=== PATIENT | female | born 1985 | race Caucasian/White ===

== ENCOUNTER 2016-06-21 11:08 | Emergency (ER) | payer MEDICARE, MEDICAID ==
[2016-06-21 11:20] VITALS: BP 119/72
[2016-06-21] MEDS ORDERED: LORazepam 2 MG/ML MDV IM ONE (11:35)
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
[2016-06-21] MEDS ORDERED: Azithromycin 250 MG Tab PO ONE (12:43)
[2016-06-21] MEDS ORDERED: LORazepam 0.5 MG Tab PO ONE (14:00)
[2016-06-22] MEDS ORDERED: Azithromycin 250 MG Tab PO ONE (12:37)
== END 2016-06-21 14:00 | disposition home or self-care (01) ==
LOC: JD.ED 11:08
DX: F41.9 Anxiety disorder, unspecified (principal); E05.90 Thyrotoxicosis, unspecified without thyrotoxic crisis or storm; F17.210 Nicotine dependence, cigarettes, uncomplicated; Z88.1 Allergy status to other antibiotic agents; Z88.8 Allergy status to other drugs, medicaments and biological substances; Z87.440 Personal history of urinary (tract) infections; Z79.899 Other long term (current) drug therapy
CPT/HCPCS: 96372; 99283; A9270; J2060; 99284

== ENCOUNTER 2016-07-20 10:05 | Emergency (ER) | payer MEDICARE, MEDICAID ==
[2016-07-20] MEDS ORDERED: LORazepam 2 MG/ML MDV IVPUSH ONE ×3 (10:22→13:31)
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
[2016-07-20] MEDS ORDERED: Dextrose 5%-0.9% NaCl 1,000 ML IV SCH (10:30)
[2016-07-20] MEDS ORDERED: Sodium Chloride 0.9% 1,000 ML IV SCH (13:00)
[2016-07-20] MEDS ORDERED: HYDROmorphone 0.5 MG/0.5 ML Syringe IVPUSH ONE (13:31)
[2016-07-20] MEDS ORDERED: levETIRAcetam 500 MG in Sodium Chloride 0.9% 100 ML IV ONE (13:33)
[2016-07-20 16:05] VITALS: BP 95/63
== END 2016-07-20 14:50 | disposition home or self-care (01) ==
LOC: JD.ED 10:05
DX: F41.9 Anxiety disorder, unspecified (principal); R56.9 Unspecified convulsions; E05.90 Thyrotoxicosis, unspecified without thyrotoxic crisis or storm; F17.210 Nicotine dependence, cigarettes, uncomplicated; Z88.0 Allergy status to penicillin; Z88.1 Allergy status to other antibiotic agents; Z88.8 Allergy status to other drugs, medicaments and biological substances; Z79.899 Other long term (current) drug therapy; Z87.440 Personal history of urinary (tract) infections
CPT/HCPCS: 36415; 80053; 80306; 82009; 83605; 83735; 83930; 85025; 96361; 96365; 96375; 96376; 99285; G0480; J1170; J2060; J7040; J7042; 99284; J1953; J7030

== ENCOUNTER 2016-08-03 11:51 | Emergency (ER) | payer MEDICARE, MEDICAID ==
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
[2016-08-03 13:47] VITALS: BP 117/78
== END 2016-08-03 13:37 | disposition home or self-care (01) ==
LOC: JD.ED 11:51
DX: K62.3 Rectal prolapse (principal); K62.5 Hemorrhage of anus and rectum; F17.210 Nicotine dependence, cigarettes, uncomplicated; F41.9 Anxiety disorder, unspecified; Z98.890 Other specified postprocedural states; E05.90 Thyrotoxicosis, unspecified without thyrotoxic crisis or storm; Z88.1 Allergy status to other antibiotic agents; Z88.8 Allergy status to other drugs, medicaments and biological substances; Z79.899 Other long term (current) drug therapy
CPT/HCPCS: 99283

== ENCOUNTER 2016-08-05 10:35 | Emergency (ER) | payer MEDICARE, MEDICAID ==
[2016-08-05 11:05] VITALS: BP 113/87
[2016-08-05] MEDS ORDERED: Sodium Chloride 0.9% 10 ML Syringe FLUSH PRN (11:21)
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
--- NOTE | 2016-08-05 12:41 | CT ---
Head CT Technique: Multiple axial sections through the brain were obtained. Intravenous contrast was not utilized. Comparison: Previous head CT exam of 03/06/16. Findings: Ventricles along the basal cisterns and sulci over the convexities are mildly prominent. Widening of the subarachnoid space posterior to the left cerebellar hemisphere is seen which is stable and a normal variant. No other abnormal parenchymal densities are seen. No evidence of intracranial hemorrhage. No midline shift or mass effect is seen. Bone window settings were reviewed which shows the visualized sinuses do appear clear. No calvarial abnormality is seen. Impression: 1. Mild generalized atrophy which is stable from prior head CT exam. 2. No acute intracranial abnormality is identified. No skull fracture is seen. Diagnostic code #2
--- NOTE | 2016-08-05 12:43 | CT ---
CT facial bones Technique: Multiple axial sections through the facial bones were obtained. Intravenous contrast was not utilized. Reconstructed coronal and sagittal images were also obtained. Findings: Paranasal sinuses are clear. No air-fluid levels are seen. Right and left globes are symmetric. No retrobulbar abnormality is seen. No facial bone fracture is seen. Mastoid sinuses and middle ear cavities are clear. Impression: 1. Nothing acute is identified on CT study of the facial bones. Diagnostic code #1
[2016-08-05] MEDS ORDERED: LORazepam 2 MG/ML MDV IVPUSH ONE (13:45)
[2016-08-05] MEDS ORDERED: Sodium Chloride 0.9% 1,000 ML IV ONE (14:00)
[2016-08-05] MEDS ORDERED: Ibuprofen 600 MG Tab PO ONE (17:01)
[2016-08-05] MEDS ORDERED: Sodium Chloride 0.9% 1,000 ML ONE (17:35)
[2016-08-05] MEDS ORDERED: Sodium Chloride 0.9% 1,000 ML IV SCH (17:45)
== END 2016-08-05 17:47 ==
LOC: JD.ED 10:35
DX: T74.11XA Adult physical abuse, confirmed, initial encounter (principal); S01.01XA Laceration without foreign body of scalp, initial encounter; R25.1 Tremor, unspecified; R61 Generalized hyperhidrosis; F32.9 Major depressive disorder, single episode, unspecified; F41.9 Anxiety disorder, unspecified; F10.20 Alcohol dependence, uncomplicated; F17.210 Nicotine dependence, cigarettes, uncomplicated; Y90.1 Blood alcohol level of 20-39 mg/100 ml; Z88.1 Allergy status to other antibiotic agents; Z88.8 Allergy status to other drugs, medicaments and biological substances; Z98.890 Other specified postprocedural states; Z78.9 Other specified health status; Y07.03 Male partner, perpetrator of maltreatment and neglect
CPT/HCPCS: 36415; 70450; 70486; 80053; 80306; 81001; 81025; 84443; 85025; 96361; 96374; 99285; A9270; G0480; J2060; J7040; J7050

== ENCOUNTER 2017-06-05 16:24 | Emergency (ER) | payer MEDICARE, MEDICAID ==
[2017-06-05 16:40] VITALS: BP 95/68
[2017-06-05] MEDS ORDERED: LORazepam 2 MG/ML SDV IVPUSH ONE (17:02)
[2017-06-05] MEDS ORDERED: Sodium Chloride 0.9% 1,000 ML IV ONE (17:03)
[2017-06-05] MEDS ORDERED: Sodium Chloride 0.9% 10 ML Syringe FLUSH PRN (17:03)
[2017-06-05] MEDS ORDERED: Ondansetron 4 MG/2 ML SDV IVPUSH ONE (17:17)
[2017-06-05] MEDS ORDERED: Ketorolac 30 MG/ML SDV IVPUSH ONE (17:17)
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
== END 2017-06-05 17:40 | disposition left against medical advice (07) ==
LOC: JD.ED 16:24
DX: R26.9 Unspecified abnormalities of gait and mobility (principal); F17.210 Nicotine dependence, cigarettes, uncomplicated; Z88.1 Allergy status to other antibiotic agents; Z79.899 Other long term (current) drug therapy
CPT/HCPCS: 36415; 80053; 83735; 84443; 84703; 85025; 96374; 99284; G0480; J2060; J7050

== ENCOUNTER 2017-08-25 11:20 | Emergency (ER) | payer MEDICARE, MEDICAID ==
[2017-08-25] MEDS ORDERED: Ketorolac 15 MG/ML SDV IVPUSH ONE (11:49)
[2017-08-25] MEDS ORDERED: Sodium Chloride 0.9% 1,000 ML IV ONE ×2 (11:49→14:51)
[2017-08-25] MEDS ORDERED: Sodium Chloride 0.9% 10 ML Syringe FLUSH PRN (11:50)
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
--- NOTE | 2017-08-25 12:45 | CT ---
Head CT Technique: Multiple axial sections through the brain were obtained. Intravenous contrast was not utilized. Comparison: Prior head CT exam of 08/05/16. Findings: Ventricles along with basal cisterns and sulci over the convexities are mildly prominent. Focal widening of the subarachnoid space posterior to the left cerebellar hemisphere is seen which is stable from previous exam. No abnormal parenchymal densities are seen. No evidence of intracranial hemorrhage. No midline shift or mass effect is seen. Bone window settings were reviewed which show mild mucosal thickening within the posterior right ethmoid sinus. Other visualized sinuses are clear. Impression: 1. Mucosal thickening within the posterior right ethmoid sinus. 2. Mild generalized atrophy and other incidental finding. 3. Nothing acute is seen. Diagnostic code #2
[2017-08-25] MEDS ORDERED: Famotidine 20 MG/2 ML SDV IVPUSH ONE (13:00)
[2017-08-25] MEDS ORDERED: Folic Acid 1 MG Tab PO ONE (13:00)
[2017-08-25] MEDS ORDERED: LORazepam 2 MG/ML SDV IVPUSH ONE (14:00)
[2017-08-25] MEDS ORDERED: Magnesium Oxide 400 MG Tab PO ONE (14:51)
[2017-08-25 16:48] VITALS: BP 115/94
== END 2017-08-25 17:25 | disposition home or self-care (01) ==
LOC: JD.ED 11:20
DX: F10.129 Alcohol abuse with intoxication, unspecified (principal); F17.210 Nicotine dependence, cigarettes, uncomplicated; Y90.1 Blood alcohol level of 20-39 mg/100 ml; Z88.1 Allergy status to other antibiotic agents; Z88.8 Allergy status to other drugs, medicaments and biological substances; Z79.899 Other long term (current) drug therapy
CPT/HCPCS: 36415; 70450; 80053; 80306; 81001; 83735; 85007; 85027; 85610; 85730; 96361; 96374; 96375; 99284; A9270; G0480; J1885; J2060; J7040; J7050

== ENCOUNTER 2017-11-27 11:17 | Emergency (ER) | payer MEDICARE, MEDICAID ==
[2017-11-27] MEDS ORDERED: LORazepam 2 MG/ML SDV ONE (11:27)
[2017-11-27] MEDS ORDERED: Midazolam 1 MG/ML 5 ML SDV ONE (11:30)
[2017-11-27] MEDS ORDERED: Rocuronium 50 MG/5 ML Vial ONE (11:30)
[2017-11-27] MEDS ORDERED: Midazolam 5 MG/ML 5 ML MDV ONE (11:31)
[2017-11-27] MEDS ORDERED: Sodium Chloride 0.9% 50 ML ONE (11:32)
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
[2017-11-27] MEDS ORDERED: diazePAM 5 MG/ML MDV IVPUSH ONE (12:07)
[2017-11-27] MEDS ORDERED: levETIRAcetam 1,500 MG in Sodium Chloride 0.9% 100 ML IV STA (12:09)
--- NOTE | 2017-11-27 12:15 | CT ---
Head CT Technique: Multiple axial sections through the brain were obtained. Intravenous contrast was not utilized. Comparison: Previous head CT study of 08/25/17. Findings: Large subdural hemorrhage is identified within the right frontal, temporal and parietal regions. Thickness of this hemorrhage is approximately 2.0 cm. Subdural blood extends along the inferior right cerebellar falx as well as extends into the inferior right temporal region. There is midline shift being seen by about 5 mm. Effacement of the right lateral ventricle is noted. Effacement of the adjacent sulci are noted in the area of the subdural hemorrhage. No additional hemorrhage is seen. Bone window settings were reviewed which shows no acute skull fracture. Impression: 1. Large right-sided subdural hematoma as noted above. Significant effacement of the adjacent sulci as well as effacement of the right lateral ventricle and midline shift of about 5 mm. Neural surgical referral is recommended. 2. No acute skull fracture or acute parenchymal hemorrhage is seen. Diagnostic code #5
--- NOTE | 2017-11-27 12:21 | CR ---
Chest: Portable view of the chest was obtained. Comparison: Prior chest x-ray of 03/09/16. Slight increased density within the left upper chest is most likely due to atelectasis or slight pulmonary contusion. Lungs otherwise are clear. Heart size is normal. Aortic knob is not well seen. Bony structures are grossly intact. Mild scoliosis is seen. Tip of endotracheal tube lies at the level of the clavicle pointing towards the right mainstem bronchus. Tip of nasogastric tube courses off the inferior edge of the film and lies within the stomach. Impression: 1. Slight parenchymal density within left upper chest most likely due to atelectasis or pulmonary contusion. 2. Tip of endotracheal tube lies at the [place] pointing to the right mainstem bronchus. 3. Tip of nasogastric tube courses off the inferior edge of the film into the stomach. 4. Other findings as noted above. Diagnostic code #3
[2017-11-27 12:22] LABS: ACETAMINOPHEN 0 ug/mL (10-30)
--- NOTE | 2017-11-27 12:26 | CR ---
Chest: Portable supine view of the chest was obtained. Comparison: Previous chest x-ray performed earlier on same day (11:56 AM) Findings: Aortic arch is better seen on current study. Thick linear area of atelectasis is noted within the left midlung which is an interval change. Better aeration of the left upper chest is seen compatible with diminished atelectasis from prior study. Heart size and mediastinum are normal. Bony structures are grossly intact. Mild scoliosis is present within the spine. Tip of endotracheal tube has been withdrawn. Tip now lies approximately 1.8 cm above the [place]. Nasogastric tube is seen with tip lying within the stomach. Impression: 1. Thick linear area of atelectasis within left midlung. Improved aeration of the left upper lung from prior study compatible with improved atelectasis. 2. Tip of endotracheal tube has been withdrawn and now lies approximately 1.8 cm above the k[place]. 3. Satisfactory position of nasogastric tube. Diagnostic code #2
[2017-11-27] MEDS ORDERED: Sodium Chloride 0.9% 1,000 ML IV SCH (12:30)
--- NOTE | 2017-11-27 12:51 | CT ---
CT cervical spine Technique: Multiple axial sections were obtained from above C1 inferiorly to the bottom of T2. Reconstructed sagittal and coronal images were reviewed. Comparison: No prior cervical spine imaging. Findings: Mild disc space narrowing is noted at C2-C3, C3-C4, C4-C5 and C5-C6. Posterior disc space narrowing is noted at C6-C7. Anterior osteophytes are noted at C2-C3 through C6-C7. Posterior osteophytes are seen most prominent at C6-C7. Vertebral body heights are maintained. Mild right-sided neural foraminal stenosis is seen at C6-C7. Other neural foramina are patent. No fracture is seen. No abnormal subluxation is seen. Mild degenerative apophyseal change is scattered within the cervical spine. Partially visualized endotracheal tube and nasogastric tube is seen. Impression: 1. Mild degenerative change. 2. Nothing acute is seen on CT study of the cervical spine. Diagnostic code #2
[2017-11-27 13:43] VITALS: BP 150/115
== END 2017-11-27 13:00 ==
LOC: JD.ED 11:17
DX: I62.00 Nontraumatic subdural hemorrhage, unspecified (principal); F10.129 Alcohol abuse with intoxication, unspecified; Y90.8 Blood alcohol level of 240 mg/100 ml or more; E03.9 Hypothyroidism, unspecified; F12.10 Cannabis abuse, uncomplicated; E87.6 Hypokalemia; R56.9 Unspecified convulsions; F41.9 Anxiety disorder, unspecified; Z79.899 Other long term (current) drug therapy; Z88.1 Allergy status to other antibiotic agents
CPT/HCPCS: 31500; 36415; 36600; 51702; 70450; 71045; 72125; 80053; 80306; 81001; 81025; 82803; 83605; 83735; 84443; 85007; 85027; 85610; 85730; 93005; 96365; 96368; 96375; 96376; 99291; 99292; G0480; J1953; J2060; J2250; J3360; J7030; J7040; J7050; 93010

== ENCOUNTER 2018-07-22 22:17 | Emergency (ER) | payer MEDICARE, MEDICAID ==
[2018-07-22 22:30] VITALS: BP 102/90
[2018-07-22] MEDS ORDERED: Lactated Ringers 1,000 ML IV ONE (23:52)
[2018-07-22] MEDS ORDERED: Ondansetron 4 MG/2 ML SDV IVPUSH ONE (23:53)
[2018-07-22] MEDS ORDERED: Ketorolac 30 MG/ML SDV IVPUSH STA (23:53)
--- NOTE | 2018-07-23 00:21 | EDM.PDOC ---
ED HPI GENERAL MEDICAL PROBLEM - General Chief Complaint: Headache Stated Complaint: RECENT BRAIN SURGERY Time Seen by Provider: 07/22/18 23:46 Source of Information: Reports: Patient, RN Notes Reviewed, Significant Other ( Boyfriend) History Limitations: Reports: Intoxication (Much of the history provided by the patient's boyfriend. The patient was more argumentative.) - History of Present Illness INITIAL COMMENTS - FREE TEXT/NARRATIVE: The patient's boyfriend states that the patient underwent cerebral aneurysm clipping surgery in November 2017 at [facility]. The patient reports that she has had a slight headache for the past 2 days, she became significantly worse this evening, while eating dinner. Her headache is felt behind both of her eyes, ears, and the back of her head. No associated nausea or vomiting. The patient reports both photophobia and phonophobia, however, when I entered the room, she was watching and listening to the television. She reports blurry vision, but did not indicate that she saw flashing lights or wavy lines. She did not report any neurologic symptoms, such as tingling, numbness, or weakness. Clinically, the patient appears to be intoxicated, and she smells strongly of alcohol. The patient's boyfriend states that the patient drinks 5 airplane bottles of vodka or liqueur every day. Her last period of sobriety was for approximately 2 weeks, in November 2017. The patient states that she has been to inpatient treatment 4 times, most recently for 2 days in 2018. She denies ever having gone to outpatient rehabilitation. The patient's PCP is Priscila Valencia NP. Her Psychiatrist or Psychologist is [facility]. Treatments IT HELP DESK ASSOCIATE: Reports: Other (see below) Other Treatments IT HELP DESK ASSOCIATE: says tylenol and motrin do not work Head Pain Score (Numeric/FACES): 10 - Related Data Allergies Allergy/AdvReac Type Severity Reaction Status Date / Time amoxicillin Allergy Cannot Verified 06/05/17 16:41 Remember baclofen Allergy Cannot Verified 06/05/17 16:41 Remember doxycycline Allergy Cannot Verified 06/05/17 16:41 Remember levetiracetam [From Keppra] Allergy Cannot Verified 06/05/17 16:41 Remember Home Meds: Home Meds Escitalopram [Lexapro] 20 mg PO DAILY 08/25/17 [History] ClonazePAM [KlonoPIN] 0.5 mg PO TID 07/22/18 [History] Gabapentin [Neurontin] 400 mg PO TID 07/22/18 [History] Past Medical History Gastrointestinal History: Reports: Hemorrhoids Musculoskeletal History: Reports: Back Pain, Chronic, Fracture (Nasal) Neurological History: Reports: Cerebral Aneurysms (s/p clipping Nov 2017), Other (See Below) (Subarachnoid hemorrhage) Psychiatric History: Reports: ADHD, Addiction (alcohol), Bipolar, Depression, Psych Hospitalization(s), PTSD, Other (See Below) (Pseudoseizures) - Infectious Disease History Infectious Disease History: Reports: Hepatitis C - Past Surgical History Head Surgeries/Procedures: Reports: Craniotomy (Right, for aneurism clipping, Nov 2017) HEENT Surgical History: Reports: Oral Surgery (wisdom teeth extraction) Musculoskeletal Surgical History: Reports: Other (See Below) (Right arm repair) Social & Family History - Family History Family Medical History: Unobtainable Musculoskeletal: Reports: Arthritis Oncologic: Reports: Breast, Colon - Tobacco Use Smoking Status *Q: Current Every Day Smoker Years of Tobacco use: 17 Packs/Tins Daily: 0.5 Packs/Tins Daily Comment: Down from 1 ppd - Caffeine Use Caffeine Use: Reports: None - Alcohol Use Alcohol Use History: Yes Days Per Week of Alcohol Use: 7 Number of Drinks Per Day: 5 Total Drinks Per Week: 35 Alcohol Use Frequency: Daily - Recreational Drug Use Recreational Drug Use: Yes Drug Use in Last 12 Months: Yes Recreational Drug Type: Reports: Cocaine (last snorted around 2006), Marijuana/ Hashish (smokes on occasion), Methamphetamine (last injected 2012) - Living Situation & Occupation Living situation: Reports: Single, with Significant Other (Boyfriend) Occupation: Unemployed ED ROS GENERAL - Review of Systems Review Of Systems: ROS reveals no pertinent complaints other than HPI. - Physical Exam Exam: See Below Exam Limited By: No Limitations General Appearance: Alert, No Apparent Distress, Thin, Other (Strong smell of alcohol) Eye Exam: Bilateral Eye: EOMI, Normal Inspection Ears: Normal External Exam, Hearing Grossly Normal Nose: Normal Inspection Throat/Mouth: Normal Inspection, Normal Lips, Normal Voice, No Airway Compromise Head Exam: Atraumatic, Normocephalic Neck: Normal Inspection, Full Range of Motion Respiratory/Chest: No Respiratory Distress, Lungs Clear, Normal Breath Sounds, No Accessory Muscle Use Cardiovascular: Normal Peripheral Pulses, Regular Rate, Rhythm, No Edema, No Gallop, No JVD, No Murmur, No Rub GI/Abdominal: Normal Bowel Sounds, Soft, Non-Tender, No Organomegaly, No Distention, No Abnormal Bruit, No Mass (Female) Exam: Deferred Rectal (Female) Exam: Deferred Neuro Exam (Abbreviated): Alert, Oriented, CN II-XII Intact, No Motor/Sensory Deficits Back Exam: Normal Inspection, Full Range of Motion, NT Extremities: Normal Inspection, Normal Range of Motion, No Pedal Edema, Normal Capillary Refill Psychiatric: Other (Hostile) Skin Exam: Warm, Dry, Intact, Normal Color, No Rash Course - Vital Signs Last Recorded V/S: Last Vital Signs Temp 36.7 C 07/22/18 22:29 Pulse 95 07/22/18 22:29 Resp 20 07/22/18 22:29 BP 102/90 07/22/18 22:29 Pulse Ox 97 07/22/18 22:29 - Orders/Labs/Meds Labs: Laboratory Tests 07/22/18 07/22/18 07/22/18 Range/Units 22:40 22:40 23:10 WBC 6.09 (3.98-10.04) K/mm3 RBC 4.64 (3.98-5.22) M/mm3 Hgb 14.2 D (11.2-15.7) gm/L Hct 41.9 (34.1-44.9) % MCV 90.3 D (79.4-94.8) fl MCH 30.6 (25.6-32.2) pg MCHC 33.9 (32.2-35.5) g/dl RDW Std Deviation 45.8 (36.4-46.3) fL Plt Count 221 (182-369) K/mm3 MPV 10.6 (9.4-12.3) fl Neutrophils % (Manual) 51 (40-60) % Band Neutrophils % 0 (0-10) % Lymphocytes % (Manual) 44 H (20-40) % Atypical Lymphs % 0 % Monocytes % (Manual) 4 (2-10) % Eosinophils % (Manual) 0 L (0.7-5.8) % Basophils % (Manual) 1 (0.1-1.2) Platelet Estimate Adequate Plt Morphology Comment Normal RBC Morph Comment Normal Sodium (136-145) mEq/L Potassium (3.5-5.1) mEq/L Chloride (98-107) mEq/L Carbon Dioxide (21-32) mEq/L Anion Gap (5-15) BUN (7-18) mg/dL Creatinine (0.55-1.02) mg/dL Est Cr Clr Drug Dosing mL/min Estimated GFR (MDRD) (>60) mL/min BUN/Creatinine Ratio (14-18) Glucose (74-106) mg/dL Calcium (8.5-10.1) mg/dL Total Bilirubin (0.2-1.0) mg/dL AST (15-37) U/L ALT (14-59) U/L Alkaline Phosphatase (46-116) U/L Total Protein (6.4-8.2) g/dl Albumin (3.4-5.0) g/dl Globulin gm/dL Albumin/Globulin Ratio (1-2) Urine Color Yellow (Yellow) Urine Appearance Clear (Clear) Urine pH 7.0 (5.0-8.0) Ur Specific [place] 1.010 (1.005-1.030) Urine Protein Negative (Negative) Urine Glucose (UA) Negative (Negative) Urine Ketones Negative (Negative) Urine Occult Blood Negative (Negative) Urine Nitrite Negative (Negative) Urine Bilirubin Negative (Negative) Urine Urobilinogen 0.2 (0.2-1.0) Ur Leukocyte Esterase Negative (Negative) Urine RBC 0-5 (0-5) /hpf Urine WBC Not seen (0-5) /hpf Ur Epithelial Cells 0-5 (0-5) /hpf Urine Bacteria Not seen (FEW) /hpf Urine Mucus Not seen (FEW) /hpf Urine Opiates Screen Negative (WCLRRY=560) Ur Buprenorphine Scrn Negative (CUTOFF=10) Ur Oxycodone Screen Negative (JPU1HO=718) Urine Methadone Screen Negative (IDORUH=298) Ur Propoxyphene Screen Negative (ZPSROB=875) Ur Barbiturates Screen Negative (TNLJYP=414) Ur Tricyclics Screen Negative (FLRXQU=325) Ur Phencyclidine Scrn Negative (CUTOFF=25) Ur Amphetamine Screen Negative (OZBEIS=823) U Methamphetamines Scrn Negative (PBDLRA=827) U Benzodiazepines Scrn Negative (TBSVNO=285) U Cocaine Metab Screen Negative (GTEQEO=665) U Marijuana (THC) Screen Negative (CUTOFF=50) Ethyl Alcohol (0.00) gm% 07/22/18 Range/Units 23:10 WBC (3.98-10.04) K/mm3 RBC (3.98-5.22) M/mm3 Hgb (11.2-15.7) gm/L Hct (34.1-44.9) % MCV (79.4-94.8) fl MCH (25.6-32.2) pg MCHC (32.2-35.5) g/dl RDW Std Deviation (36.4-46.3) fL Plt Count (182-369) K/mm3 MPV (9.4-12.3) fl Neutrophils % (Manual) (40-60) % Band Neutrophils % (0-10) % Lymphocytes % (Manual) (20-40) % Atypical Lymphs % % Monocytes % (Manual) (2-10) % Eosinophils % (Manual) (0.7-5.8) % Basophils % (Manual) (0.1-1.2) Platelet Estimate Plt Morphology Comment RBC Morph Comment Sodium 145 (136-145) mEq/L Potassium 3.9 (3.5-5.1) mEq/L Chloride 106 (98-107) mEq/L Carbon Dioxide 28 (21-32) mEq/L Anion Gap 14.9 (5-15) BUN 7 (7-18) mg/dL Creatinine 0.7 (0.55-1.02) mg/dL Est Cr Clr Drug Dosing 101.90 mL/min Estimated GFR (MDRD) > 60 (>60) mL/min BUN/Creatinine Ratio 10.0 L (14-18) Glucose 92 (74-106) mg/dL Calcium 9.4 (8.5-10.1) mg/dL Total Bilirubin 0.2 (0.2-1.0) mg/dL AST 132 H (15-37) U/L ALT 124 H (14-59) U/L Alkaline Phosphatase 58 (46-116) U/L Total Protein 7.8 (6.4-8.2) g/dl Albumin 4.5 (3.4-5.0) g/dl Globulin 3.3 gm/dL Albumin/Globulin Ratio 1.4 (1-2) Urine Color (Yellow) Urine Appearance (Clear) Urine pH (5.0-8.0) Ur Specific [place] (1.005-1.030) Urine Protein (Negative) Urine Glucose (UA) (Negative) Urine Ketones (Negative) Urine Occult Blood (Negative) Urine Nitrite (Negative) Urine Bilirubin (Negative) Urine Urobilinogen (0.2-1.0) Ur Leukocyte Esterase (Negative) Urine RBC (0-5) /hpf Urine WBC (0-5) /hpf Ur Epithelial Cells (0-5) /hpf Urine Bacteria (FEW) /hpf Urine Mucus (FEW) /hpf Urine Opiates Screen (HGKOVW=360) Ur Buprenorphine Scrn (CUTOFF=10) Ur Oxycodone Screen (IYO0XJ=477) Urine Methadone Screen (SIDLHO=469) Ur Propoxyphene Screen (HLJSAB=256) Ur Barbiturates Screen (OHMAUW=691) Ur Tricyclics Screen (EFKZRV=205) Ur Phencyclidine Scrn (CUTOFF=25) Ur Amphetamine Screen (ZRFHAV=692) U Methamphetamines Scrn (FJQUOM=133) U Benzodiazepines Scrn (PYVMLX=101) U Cocaine Metab Screen (GUSWLS=077) U Marijuana (THC) Screen (CUTOFF=50) Ethyl Alcohol 0.33 (0.00) gm% Meds: Medications Discontinued Medications Generic Name Dose Route Start Last Admin Trade Name Freq PRN Reason Stop Dose Admin Lactated Ringer's 1,000 mls @ 999 mls/hr 07/22/18 23:52 07/23/18 00:04 Ringers, Lactated IV 07/23/18 00:52 999 mls/hr .BOLUS ONE Administration Lactated Ringer's 1,000 mls @ 100 mls/hr 07/23/18 00:30 07/23/18 00:36 Ringers, Lactated IV 100 mls/hr ASDIRECTED KRISTY Administration Ketorolac Tromethamine 30 mg 07/22/18 23:53 07/23/18 00:04 Toradol IVPUSH 07/22/18 23:54 30 mg ONETIME STA Administration Ondansetron HCl 4 mg 07/22/18 23:53 07/23/18 00:04 Zofran IVPUSH 07/22/18 23:54 4 mg ONETIME ONE Administration - Re-Assessments/Exams Free Text/Narrative Re-Assessment/Exam: 07/22/18 23:50 Blood work, a urinalysis, a urine drug screen, and a CT scan of the head without contrast were ordered by the patient's nurse earlier. The CT scan of the head without contrast is read by Pauly as "No acute intracranial findings." The body of the report notes a prior right-sided craniotomy. The patient's CBC is unremarkable. The patient's CMP is remarkable only for mildly elevated transaminases, and is otherwise unremarkable. The patient's alcohol level is substantially elevated at 0.33. The patient's urinalysis is unremarkable. The patient's urine drug screen is negative. Test results discussed with the patient and her boyfriend. At this point, the patient is not expressing any interest in stopping drinking. In order to help her headache, she received 30 mg of IV Toradol, and is currently receiving IV fluid. She received 4 mg of IV Zofran. I am willing to keep the patient in the ED overnight for continued hydration. If, in the morning, she expresses a desire to stop drinking, we can discuss admission to the hospital to observe for significant alcohol withdrawal symptoms, otherwise, the plan will be to discharge her home in the morning. 07/23/18 01:19 Notified that the patient would like to go home. I will discharge her. Departure - Departure Time of Disposition: 01:19 Disposition: Home, Self-Care 01 Condition: Good Clinical Impression: Alcohol intoxication, Chronic alcoholism - Discharge Information *PRESCRIPTION DRUG MONITORING PROGRAM REVIEWED*: Not Applicable *COPY OF PRESCRIPTION DRUG MONITORING REPORT IN PATIENT [place]: Not Applicable Instructions: Alcohol Use Disorder, Alcohol Intoxication Referrals: Priscila Valencia NP [Primary Care Provider] - Forms: ED Department Discharge Additional Instructions: You were seen in the emergency room for a headache. Workup in the ER included blood work, a urinalysis, a urine drug screen, and a CT scan of your head. Your bloodwork found your alcohol level to be substantially elevated at 0.33. For reference, the upper legal limit for driving is 0.08. Yours is over 4 times that upper limit. The remainder of your workup was unremarkable. The CT scan of your head showed no new abnormalities. You were treated with IV fluid, pain medicine, and antinausea medicine in the ER. We strongly recommend that you consider stopping drinking. We recommend that you follow-up with your PCP, Priscila Valencia NP, as well as your Psychiatrist, at the next available appointment. If any other problems, please do not hesitate to return to the ER.
[2018-07-23] MEDS ORDERED: Lactated Ringers 1,000 ML IV SCH (00:30)
--- NOTE | 2018-07-24 10:16 | CT ---
Head CT Technique: Multiple axial sections through the brain were obtained. Intravenous contrast was not utilized. Comparison: Prior head CT study on 01/12/16. Findings: Ventricles along with basal cisterns and sulci over the convexities are mildly prominent. Prominent subdural fluid collection is seen posterior to the left cerebellar hemisphere which is stable from prior exam and is felt to be due to normal variant. No acute intracranial abnormality is appreciated. Previous right-sided craniotomy is noted. Bone window settings show no acute calvarial abnormality. No acute sinus findings are seen. Impression: 1. Stable atrophy. Previous right-sided craniotomy. 2. No acute intracranial abnormality is identified. Diagnostic code #2 I agree with preliminary report from [facility], finalized on 07/23/18, 12:32 AM Central Time
== END 2018-07-23 01:28 | disposition home or self-care (01) ==
LOC: SUPCPDRO 22:17 → JD.ED 22:17
DX: F10.229 Alcohol dependence with intoxication, unspecified (principal); Y90.8 Blood alcohol level of 240 mg/100 ml or more; F17.210 Nicotine dependence, cigarettes, uncomplicated; F90.9 Attention-deficit hyperactivity disorder, unspecified type; Z79.899 Other long term (current) drug therapy; Z88.1 Allergy status to other antibiotic agents; Z88.8 Allergy status to other drugs, medicaments and biological substances
CPT/HCPCS: 36415; 70450; 80053; 80306; 81001; 85007; 85027; 96361; 96374; 96375; 99283; G0480; J1885; J2405; J7120

== ENCOUNTER 2019-02-26 13:35 | Emergency (ER) | payer MEDICARE, MEDICAID ==
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
[2019-02-26] MEDS ORDERED: Lactated Ringers 1,000 ML IV ONE (14:32)
[2019-02-26] MEDS ORDERED: diphenhydrAMINE 50 MG/ML SDV IVPUSH ONE (14:32)
[2019-02-26] MEDS ORDERED: Ondansetron 4 MG/2 ML SDV IVPUSH ONE (14:32)
--- NOTE | 2019-02-26 15:30 | CT ---
Head CT Technique: Multiple axial sections through the brain were obtained. Intravenous contrast was not utilized. Comparison: Prior head CT study of 01/11/18. Findings: Ventricles along with basal cisterns and sulci over the convexities are mildly prominent. CSF space is seen posterior to the left cerebellar hemisphere which is stable. No evidence of intracranial hemorrhage. No midline shift or mass effect is seen. Prior craniotomy is noted on the right side. No acute calvarial abnormality is appreciated. Mastoid sinuses show nothing acute. Visualized paranasal sinuses also show nothing acute. Impression: 1. Mild generalized atrophy. 2. Prominent CSF space posterior to the left cerebellar hemisphere which is stable. 3. No acute intracranial abnormality is appreciated. Diagnostic code #2 This report was dictated in [place] Standard Time
[2019-02-26] MEDS ORDERED: Ketorolac 30 MG/ML SDV IVPUSH ONE (15:45)
[2019-02-26] MEDS ORDERED: LORazepam 2 MG/ML SDV IVPUSH ONE (17:06)
[2019-02-26 17:25] VITALS: BP 100/79; PULSE 86
== END 2019-02-26 17:21 | disposition home or self-care (01) ==
LOC: JD.ED 13:35
DX: G44.209 Tension-type headache, unspecified, not intractable (principal); F32.9 Major depressive disorder, single episode, unspecified; Z88.1 Allergy status to other antibiotic agents; Z98.890 Other specified postprocedural states; Z79.899 Other long term (current) drug therapy; Z87.891 Personal history of nicotine dependence
CPT/HCPCS: 70450; 96361; 96374; 96375; 99284; J1200; J1885; J2060; J2405; J7120; 99283

== ENCOUNTER 2020-11-30 11:35 | Emergency (ER) | payer MEDICARE, MEDICAID ==
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
[2020-11-30 14:27] VITALS: BP 93/77; PULSE 90
== END 2020-11-30 14:20 | disposition home or self-care (01) ==
LOC: JD.ED 11:35
DX: N39.0 Urinary tract infection, site not specified (principal); Z88.1 Allergy status to other antibiotic agents; Z88.8 Allergy status to other drugs, medicaments and biological substances
CPT/HCPCS: 81001; 87086; 99283

== ENCOUNTER 2021-10-03 13:57 | Emergency (ER) | payer MEDICARE, MEDICAID ==
[2021-10-03 14:14] VITALS: BP 99/66; PULSE 116
[2021-10-03] MEDS ORDERED: Diphtheria,Pertussis(Acell),Tetanus Vaccine 0.5 ML Syringe IM ONE (14:33)
[2021-10-03] MEDS ORDERED: Cephalexin 500 MG Cap PO ONE (14:34)
== END 2021-10-03 15:17 | disposition home or self-care (01) ==
LOC: JD.ED 13:57
DX: S51.831A Puncture wound without foreign body of right forearm, initial encounter (principal); Z88.0 Allergy status to penicillin; Z88.1 Allergy status to other antibiotic agents; Z88.8 Allergy status to other drugs, medicaments and biological substances; Z23 Encounter for immunization; W18.09XA Striking against other object with subsequent fall, initial encounter
CPT/HCPCS: 90471; 90715; 99283; A9270

== ENCOUNTER 2021-12-04 07:01 | Emergency (ER) | payer MEDICARE, MEDICAID ==
[2021-12-04 07:31] VITALS: BP 111/76; PULSE 98
[2021-12-04] MEDS ORDERED: Acetaminophen 325 MG Tab PO ONE (08:26)
[2021-12-04 09:00] LABS: CORONAVIRUS COVID-19 NAA NEGATIVE (NEGATIVE)
[2021-12-04] MEDS ORDERED: Ketorolac 60 MG/2 ML SDV IM ONE (09:21)
[2021-12-04] MEDS ORDERED: Levofloxacin 500 MG Tab PO ONE (09:22)
== END 2021-12-04 09:53 | disposition home or self-care (01) ==
LOC: JD.ED 07:01
DX: J18.9 Pneumonia, unspecified organism (principal); Z88.0 Allergy status to penicillin; Z88.8 Allergy status to other drugs, medicaments and biological substances; Z79.899 Other long term (current) drug therapy; Z86.16 Personal history of COVID-19; Z20.822 Contact with and (suspected) exposure to COVID-19
CPT/HCPCS: 0240U; 70450; 71045; 96372; 99284; A9270; J1885

== ENCOUNTER 2024-03-28 07:53 | Day surgery (SDC) | payer MEDICARE, MEDICAID ==
[~2024-03-28 07:53] MED LIST: Lactated Ringers 1,000 ML IV SCH; Sodium Chloride 0.9% 10 ML Syringe FLUSH PRN; Sodium Chloride 0.9% 10 ML Syringe FLUSH SCH
[2024-03-28] MEDS ORDERED: Propofol 200 MG/20 ML SDV ONE ×2 (08:46)
[2024-03-28] MEDS ORDERED: Midazolam 1 MG/ML 2 ML SDV ONE (08:49)
[2024-03-28 10:51] VITALS: BP 117/88; PULSE 88
== END 2024-03-28 10:07 | disposition home or self-care (01) ==
LOC: JD.SDS 07:53
PROVIDERS: ATTEND Surgery
DX: K21.00 Gastro-esophageal reflux disease with esophagitis, without bleeding (principal); K29.50 Unspecified chronic gastritis without bleeding; K31.89 Other diseases of stomach and duodenum; K44.9 Diaphragmatic hernia without obstruction or gangrene; K22.89 Other specified disease of esophagus; F41.9 Anxiety disorder, unspecified; F32.A Depression, unspecified; F17.210 Nicotine dependence, cigarettes, uncomplicated; Z79.899 Other long term (current) drug therapy; Z88.0 Allergy status to penicillin; Z88.2 Allergy status to sulfonamides; Z88.8 Allergy status to other drugs, medicaments and biological substances
CPT/HCPCS: 43239; J2250; J2704; J7120; 00731

== ENCOUNTER 2024-07-21 02:09 | Emergency (ER) | payer MEDICARE, MEDICAID ==
[~2024-07-21 02:09] MED LIST changes: -Lactated Ringers 1,000 ML IV SCH; +Naloxone 2 MG/2 ML Syringe ONE; -Sodium Chloride 0.9% 10 ML Syringe FLUSH PRN; -Sodium Chloride 0.9% 10 ML Syringe FLUSH SCH
[2024-07-21] MEDS: Naloxone 2 MG/2 ML Syringe IVPUSH ONE (02:17)
[2024-07-21] MEDS ORDERED: Sodium Chloride 0.9% 10 ML Syringe FLUSH PRN (02:17)
[2024-07-21] MEDS ORDERED: Sodium Chloride 0.9% 1,000 ML IV SCH (02:30)
[2024-07-21 03:02] LABS: BARBITURATE SCREEN,URINE NEGATIVE (CUTOFF=200); BENZODIAZEPINES SCREEN,URINE PRESUMPTIVE POSITIVE (CUTOFF=150); BUPRENORPHINE SCREEN,URINE NEGATIVE (CUTOFF=10); METHADONE SCREEN, URINE NEGATIVE (CUTOFF=200); METHAMPHETAMINES SCREEN, URINE PRESUMPTIVE POSITIVE (CUTOFF=500); OXYCODONE SCREEN,URINE NEGATIVE (CUT0FF=100); THC SCREEN,URINE 20 NG/ML NEGATIVE (CUTOFF=50)
[2024-07-21 03:05] LABS: AMPHETAMINES SCREEN, URINE PRESUMPTIVE POSITIVE (CUTOFF=500)
[2024-07-21 03:21] LABS: HEMATOCRIT 47.9 % (37.0-47.0); HEMOGLOBIN 15.9 gm/dl (12.0-16.0); MEAN CORPUSCULAR HEMOGLOBIN 30.2 pg (28.0-32.0); MEAN CORPUSCULAR HGB CONC 33.2 g/dl (32.0-36.0); MEAN CORPUSCULAR VOLUME 90.9 fl (83.0-99.0); MEAN PLATELET VOLUME 9.4 fl (9.4-12.3); PLATELET COUNT,PLT 365 K/mm3 (150-400); RED BLOOD CELL COUNT 5.27 M/mm3 (4.10-5.30)
[2024-07-21 03:44] LABS: ALBUMIN 3.7 g/dl (3.4-5.0); ANION GAP 13.9 (5-15); BILIRUBIN TOTAL 0.1 mg/dL (0.2-1.0); BUN/CREATININE RATIO 7.8 (14-18); CALCIUM 9.4 mg/dL (8.5-10.1); CREATININE 0.9 mg/dL (0.55-1.02); EST CRCL DRUG DOSING (CG) 83.82 mL/min; ETHANOL BLOOD MEDICAL 0.24 gm% (0.00); POTASSIUM,K 3.9 mEq/L (3.5-5.1); PROTEIN TOTAL,TP 7.6 g/dl (6.4-8.2)
[2024-07-21 04:05] LABS: BAND PERCENT MAN 0 % (0-10); BASOPHILS PERCENT MAN 1 (0.1-1.2); EOSINOPHILS PERCENT MAN 3 % (0.7-5.8); LYMPHOCYTES % ATYPICAL MANUAL 0 %; LYMPHOCYTES PERCENT MAN 33 % (20-40); MONOCYTES PERCENT MAN 3 % (2-10); PLATELET COUNT ESTIMATE ADEQUATE
[2024-07-21 05:45] VITALS: BP 105/94; PULSE 88
== END 2024-07-21 05:30 | disposition home or self-care (01) ==
LOC: JD.ED 02:09 → MERGE 02:09 → JD.ED 05:30
DX: R41.82 Altered mental status, unspecified (principal); F10.920 Alcohol use, unspecified with intoxication, uncomplicated; Z79.899 Other long term (current) drug therapy; Z88.1 Allergy status to other antibiotic agents; Z88.2 Allergy status to sulfonamides; Z88.0 Allergy status to penicillin; Z88.8 Allergy status to other drugs, medicaments and biological substances
CPT/HCPCS: 36415; 71101; 80053; 80143; 80179; 80306; 80307; 84703; 85007; 85027; 93005; 96374; 99285; J2310